=== PATIENT | male | born 1985 ===

== ENCOUNTER 2019-01-19 12:03 | Emergency (ER) | payer SELFPAY ==
[~2019-01-19] VITALS: Ht 172.7 cm; Wt 67.3 kg
[2019-01-19 12:09] VITALS: BP 125/82; TEMP 97.7
[2019-01-19] MEDS ORDERED: CEPHALEXIN500 M1 PO (12:49)
[2019-01-19] MEDS ORDERED: GLUCOPHAGE500 MG/TAB PO ×2 (12:49)
[2019-01-19 12:51] LABS: BASO % 0.4 % (0.0-2.0); EOS # 0.1 (0.0-0.7); EOS % 1.4 % (0-4.0); GRAN # 3.2 (1.4-6.5); GRAN % 56.2 % (42.2-75.2); HEMATOCRIT 38.3 % (42.0-52.0); HEMOGLOBIN 13.3 g/dl (13.5-18.0); LYMPH # 2.1 (1.2-3.4); LYMPH % 36.7 % (20.0-51.0); MEAN CELL VOLUME 90 fl (80.0-100.0); MEAN CORPUSCULAR HEMOGLOBIN 31 pg (27.0-31.0); MEAN CORPUSCULAR HGB CONC 35 g/dl (33.0-37.0); MEAN PLATELET VOLUME 8.8 fl (7.4-10.4); MONO # 0.3 (0.1-0.6); MONO % 5.1 % (1.7-9.3); PLATELET COUNT 282 K/mm3 (130-400); RED BLOOD COUNT 4.24 M/mm3 (4.20-5.60); REDCELL DISTRIBUTION WIDTH-CV 11.7 % (11.5-14.5)
[2019-01-19 13:04] LABS: COLLECTION METHOD CLEAN CATCH
[2019-01-19 13:10] LABS: MUCOUS Present /lpf; PH 5 (5-8); SQUAMOUS EPITHELIAL 0-2 /hpf; URINE APPEARANCE Clear; URINE BACTERIA None Seen /hpf; URINE BILIRUBIN Negative (NEGATIVE); URINE BLOOD Negative (NEGATIVE); URINE COLOR Yellow; URINE GLUCOSE Negative (NEGATIVE); URINE KETONE Negative (NEGATIVE); URINE LEUKOCYTE ESTERASE Negative (NEGATIVE); URINE NITRATE Negative (NEGATIVE); URINE PROTEIN(semi-quant) Negative (NEGATIVE); URINE RBC 0-2 /hpf; URINE UROBILINOGEN Negative (NEGATIVE)
[2019-01-19 13:12] LABS: ALANINE AMINOTRANSFERASE 11 U/L (21-72); ALBUMIN 4.4 gm/dL (3.5-5.0); ALKALINE PHOSPHATASE 109 U/L (50-136); ANION GAP 10 mmol/L (7-16); AST,SGOT 24 U/L (15-37); BILIRUBIN,TOTAL 0.5 mg/dL (0.0-1.0); BLOOD UREA NITROGEN 12 mg/dL (9-20); C-REACTIVE PROTEIN < 0.5 mg/dL (0.0-0.9); CALCIUM 9.2 mg/dL (8.4-10.2); CARBON DIOXIDE 28 mmol/L (22-30); CHLORIDE 101 mmol/L (98-107); CREATININE, serum 0.63 (0.66-1.25); GLUCOSE 125 mg/dL (74-106); POTASSIUM 4.2 mmol/L (3.4-5.0); SODIUM 139 mmol/L (137-145); TOTAL PROTEIN 7.5 gm/dL (6.4-8.2)
[2019-01-19 13:36] LABS: ERYTHROCYTE SEDIMENTATION RATE 15 mm/hr (0-15)
[2019-01-19] MEDS ORDERED: AMOXICILLIN 8751 TAB PO (13:40)
[2019-01-19 14:04] VITALS: PULSE 69
== END 2019-01-19 14:05 | disposition home or self-care (01) ==
LOC: COL.ER 12:03
PROVIDERS: Family Medicine
DX: E11.65 Type 2 diabetes mellitus with hyperglycemia (principal); J32.0 Chronic maxillary sinusitis; Z79.84 Long term (current) use of oral hypoglycemic drugs